=== PATIENT | female | born 1955 | race Caucasian/White ===

== ENCOUNTER 2018-11-08 22:23 | Inpatient (IN) | payer MEDICARE, OTHER ==
[2018-11-08] MEDS ORDERED: ASPIRIN (CHEWABLE) 81 MG TAB PO ONE (22:35)
--- NOTE | 2018-11-08 22:39 | ED.PDOC ---
History of Present Illness - General Chief Complaint: Chest Pain/ME Stated Complaint: chest pain Time Seen by Provider: 11/08/18 22:29 - History of Present Illness Initial Comments: Pt is a 63 y.o. F w/ pmh of htn, dm, and copd who presents to the ER c/o chest pain. Pain has been constant since yesterday, radiates to the left side of her neck and arm. Associated with nausea and decreased p.o. intake. Also reports having a persistent, nonproductive cough today as well as generalized malaise and fatigue. Denies h/o cardiac disease. denies vomiting, diaphoresis, shortness of breath. Allergies/Adverse Reactions: Allergies NO KNOWN ALLERGY Allergy (Verified 11/08/18 23:14) Home Medications: Ambulatory Orders Benztropine Mesylate 1 mg PO DAILY 11/08/18 Bupropion HCl [Bupropion Hydrochloride E] 150 mg PO BID 11/08/18 Cyclobenzaprine HCl [Fexmid] 7.5 mg PO DAILY 11/08/18 Esomeprazole Magnesium 40 mg PO DAILY 11/08/18 Fluticasone Furoate-Vilanterol [Breo Ellipta] 1 inh IN BID 11/08/18 Metformin HCl [Fortamet] 500 mg PO DAILY 11/08/18 Metoprolol Tartrate [Lopressor] 25 mg PO BID 11/08/18 Ondansetron HCl [Zofran] 4 mg PO PRN 11/08/18 Topiramate 25 mg PO BID 11/08/18 Trazodone HCl 100 mg PO BEDTIME 11/08/18 tiZANidine [Zanaflex] 4 mg PO BID 11/08/18 Review of Systems - Review of Systems Constitutional: States: malaise. Denies: diaphoresis EENTM: States: no symptoms reported Respiratory: States: no symptoms reported Cardiology: States: chest pain. Denies: palpitations Gastrointestinal/Abdominal: States: nausea. Denies: vomiting Genitourinary: States: no symptoms reported Musculoskeletal: States: no symptoms reported Skin: States: rash. Denies: lesions Neurological: States: no symptoms reported Endocrine: States: no symptoms reported Hematologic/Lymphatic: States: no symptoms reported All other Systems: Reviewed and Negative Family Medical History - Family History Mother Hx Cardiac Disease: Yes Hx Family Diabetes: Yes Physical Exam - Physical Exam General Appearance: Alert, Comfortable Eyes, Ears, Nose, Throat Exam: normal ENT inspection, pharynx normal Neck: non-tender, supple Respiratory: chest non-tender, lungs clear Cardiovascular/Chest: normal peripheral pulses, regular rate, rhythm Gastrointestinal/Abdominal: non tender, soft Rectal Exam: deferred Extremity: normal range of motion, no pedal edema Neurologic: no motor/sensory deficits, alert, normal mood/affect, oriented x 3 Skin Exam: normal color, warm/dry Progress - Progress Progress: 11/08/18 22:40 MDM Pt w/ h/o copd, dm, htn here with chest pain, cough and generalized malaise. Diff dx: pna, acs. plan for cardiac w/u, treat symptoms, reassess. 11/08/18 23:53 Appears to be RLL infiltrate, per my read. Given productive cough and leukocytosis, will admit for IV antibiotics. Spoke to Filomena Everett who accepts patient for admission. - Results/Orders Results/Orders: 11/08/18 23:25 Potassium Chloride Inj 10 Meq 20 meq Sodium Chloride 0.9% 100Ml [NS (NACL 0.9%) 100ml] 100 ml IVPB ONCE 11/08/18 23:27 Sodium Chloride 0.9% 1000ML [Ns 1000 ml] 1,000 ml IVS ONCE 11/08/18 23:37 cefTRIAXone SODIUM [Rocephin] 1 gm Sodium Chl 0.9% 50Ml Min-Bag+ [NS 50ml MINI-BAG+] 50 ml IVPB ONCE BLOOD CULTURE Stat 11/08/18 23:39 URINALYSIS Stat 11/08/18 23:50 INFLUENZA A & B BY PCR Stat Laboratory Results - last 24 hr 11/08/18 11/08/18 11/08/18 22:34 22:35 22:35 WBC 22.6 H* RBC 4.56 Hgb 13.3 Hct 39.4 MCV 86.4 MCH 29.1 MCHC 33.7 RDW 14.6 H Plt Count 216 MPV 8.5 Absolute Neuts (auto) Not Reportable Absolute Lymphs (auto) Not Reportable Absolute Monos (auto) Not Reportable Absolute Eos (auto) Not Reportable Neutrophils % Not Reportable Neutrophils % (Manual) 87.0 H Lymphocytes % Not Reportable Lymphocytes % (Manual) 9.0 Monocytes % Not Reportable Monocytes % (Manual) 2.0 Eosinophils % Not Reportable Basophils % Not Reportable Band Neutrophils 2.0 Platelet Estimate Normal Normal RBC Morphology Normal rbc morph Sodium 131 L Potassium 2.5 L Chloride 94 L Carbon Dioxide 22 Anion Gap 17.5 BUN 26 H Creatinine 1.23 BUN/Creatinine Ratio 21.1 H Random Glucose 106 H Serum Osmolality 267.8 L Lactic Acid Calcium 8.1 L Magnesium Total Bilirubin 1.3 H AST 14 ALT 18 Alkaline Phosphatase 86 Troponin I 0.02 Serum Total Protein 7.3 Albumin 3.3 Globulin 4.0 H Albumin/Globulin Ratio 0.8 L 11/08/18 11/08/18 23:24 23:26 WBC RBC Hgb Hct MCV MCH MCHC RDW Plt Count MPV Absolute Neuts (auto) Absolute Lymphs (auto) Absolute Monos (auto) Absolute Eos (auto) Neutrophils % Neutrophils % (Manual) Lymphocytes % Lymphocytes % (Manual) Monocytes % Monocytes % (Manual) Eosinophils % Basophils % Band Neutrophils Platelet Estimate Normal RBC Morphology Sodium Potassium Chloride Carbon Dioxide Anion Gap BUN Creatinine BUN/Creatinine Ratio Random Glucose Serum Osmolality Lactic Acid 1.6 Calcium Magnesium 1.4 L Total Bilirubin AST ALT Alkaline Phosphatase Troponin I Serum Total Protein Albumin Globulin Albumin/Globulin Ratio - EKG/XRAY/CT Comments: NSR @ rate of 78, L axis, normal intervals, no STEMI Xray Comments: RLL infiltrate, per my read Departure - Departure Clinical Impression: Community acquired pneumonia Qualifiers: Laterality: right Lung location: lower lobe of lung Qualified Code(s): J18.1 - Lobar pneumonia, unspecified organism Disposition: Admit Patient Condition: Fair Departure Forms: ED Discharge - Pt. Copy, Patient Portal Self Enrollment Instructions: DI for Chest Pain Referrals: Mello Coleman MD [Primary Care Provider] - 1-2 Weeks Home Medications: Ambulatory Orders Benztropine Mesylate 1 mg PO DAILY 11/08/18 Bupropion HCl [Bupropion Hydrochloride E] 150 mg PO BID 11/08/18 Cyclobenzaprine HCl [Fexmid] 7.5 mg PO DAILY 11/08/18 Esomeprazole Magnesium 40 mg PO DAILY 11/08/18 Fluticasone Furoate-Vilanterol [Breo Ellipta] 1 inh IN BID 11/08/18 Metformin HCl [Fortamet] 500 mg PO DAILY 11/08/18 Metoprolol Tartrate [Lopressor] 25 mg PO BID 11/08/18 Ondansetron HCl [Zofran] 4 mg PO PRN 11/08/18 Topiramate 25 mg PO BID 11/08/18 Trazodone HCl 100 mg PO BEDTIME 11/08/18 tiZANidine [Zanaflex] 4 mg PO BID 11/08/18 Decision To Admit - Decistion To Admit Decision to Admit Date: 11/08/18 Decision to Admit Time: 23:51
--- NOTE | 2018-11-08 23:01 | RAD ---
EXAM: XR Chest, 1 View CLINICAL HISTORY: The patient is 63 years old and is Female; pain TECHNIQUE: Frontal view of the chest. COMPARISON: No relevant prior studies available. FINDINGS: LUNGS: Minimal bibasilar opacities are present. PLEURAL SPACE: Unremarkable. No pneumothorax. HEART: The cardiac silhouette is enlarged. MEDIASTINUM: Unremarkable. BONES/JOINTS: There are degenerative changes of the bones. IMPRESSION: Findings suggestive of bibasilar atelectasis. Electronically signed by: Rebecca Faulkner MD 11/08/2018 11:00 PM CDT
[2018-11-08] MEDS ORDERED: IPRATROPIUM/ALBUTEROL 3 ML VIAL NEB ONE ×2 (23:12)
[2018-11-08] MEDS ORDERED: SODIUM CHLORIDE 0.9% IVPB ONE (23:25)
[2018-11-08] MEDS ORDERED: POTASSIUM CHLORIDE IVPB ONE (23:25)
[2018-11-08] MEDS ORDERED: POTASSIUM CHLORIDE 20 MEQ TAB PO ONE (23:25)
[2018-11-08] MEDS ORDERED: SODIUM CHLORIDE 0.9% 1000ML 1,000 ML IVS ONE (23:27)
[2018-11-08] MEDS ORDERED: POTASSIUM CHLORIDE 10mEq 5ML VIAL ONE (23:30)
[2018-11-08] MEDS ORDERED: SODIUM CHLORIDE 0.9% 100ML 100 ML IVPB ONE (23:30)
[2018-11-08] MEDS ORDERED: AZITHROMYCIN 250 MG TAB PO ONE (23:37)
[2018-11-08] MEDS ORDERED: cefTRIAXone SODIUM 1 GM in SODIUM CHL 0.9% 50ML MIN-BAG+ 50 ML IVPB ONE (23:37)
[2018-11-08] MEDS ORDERED: cefTRIAXone SODIUM 1 GM VIAL ONE (23:51)
[2018-11-08] MEDS ORDERED: SODIUM CHL 0.9% 50ML MIN-BAG+ 50 ML IVPB ONE (23:51)
--- NOTE | 2018-11-09 00:17 | HP ---
SUPERVISING PHYSICIAN: Jared Booker M.D. CHIEF COMPLAINT: Chest pain, coughing and upper respiratory complaints. HISTORY OF PRESENT ILLNESS: This is a 63 year-old female patient who presented to the Emergency Room on the evening prior to admission with some chest pain as well as some shortness of breath, coughing and a mild fever. Her coughing has been going on for approximately 2 months. She was actually in the [facility] [facility] once in August and 2 times in September for a cough. Initially in the Emergency Room her temperature was 99.3, heart rate 76, blood pressure was slightly low at 97/65, respiratory rate 22 to 24 and O2 sat was 91%. She has a significant history of chronic obstructive pulmonary disease and quit smoking in 2007. She has also been under quite a bit of stress lately due to her great grandson was recently born with some heart problems and his heart actually stopped beating on the date of her visit to the [facility] He is having surgery in [place]. She said she just did not feel right. She has taken in very little intake and just felt weak and fatigued. Her chest pain was substernal that radiated to the left side. It was worse with movement and it was better when she was lying flat. In the Emergency Room her WBCs were 22,600 with hemoglobin 13.3, hematocrit 39.4. Sodium was 131, potassium 2.5, chloride 94, carbon dioxide 22, anion gap 17.5, BUN 26, creatinine 1.23, glucose 106, serum osmolality 267.8, calcium 8.4, magnesium 1.4. Bilirubin 1.3. Troponin 0.02. Urinalysis was mely in color with a small amount of urine bilirubin, 3 to 5 urine WBCs and 3+ urine bacteria. Blood cultures were sent. The patient was given some fluids in the Emergency Room as well as given some potassium replacement. She was also started on Rocephin. She was given multiple breathing treatments and I was called for hospital admission. PAST MEDICAL HISTORY: 1. Chronic obstructive pulmonary disease. 2. Diabetes mellitus type 2. 3. Coronary artery disease. 4. Hypertension. 5. Gastroesophageal reflux disease. 6. Essential tremors. 7. Fatty liver. She is scheduled with a GI doctor in [place]. 8. Chronic back pain. 9. Anxiety and depression. PAST SURGICAL HISTORY: 1. section times 3. 2. Hysterectomy. 3. Cholecystectomy. 4. 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 OUTPATIENT MEDICATIONS: 1. Nexium. 2. Zofran. 3. Benztropine. 4. Bupropion. 5. Cyclobenzaprine. 6. Fluticasone/Vilanterol. 7. Metformin. 8. Metoprolol. 9. Tizanidine. 10. Topiramate. 11. Trazodone. ALLERGIES: NO KNOWN DRUG ALLERGIES. SOCIAL HISTORY: She has lived in [place] for many years. She is in the process of moving to [place]. There are some issues with her utilities at her home right now and so she is presently living with her granddaughter here in [place]. She has a 30 plus pack year cigarette smoking history and she quit smoking in 2007. She drinks alcoholic beverages on a social basis only. She denies any illicit drug use. She sees Dr. Shantel Morales in [place] as her primary care physician. REVIEW OF SYSTEMS: GENERAL: Positive for fever and malaise. Negative for weight changes. HEENT: Negative for sinus symptom, ear pain, vision changes or sore throat. RESPIRATORY: Positive for shortness of breath and cough. Negative for wheezing. CARDIAC: As per History of Present Illness. She does deny palpitations. GASTROINTESTINAL: Positive for nausea. Negative for vomiting, diarrhea or constipation. GENITOURINARY: Negative for hematuria, dysuria or polyuria. MUSCULOSKELETAL: Positive for chronic back pain. Negative for arthralgias or myalgias. SKIN: Negative for lesions or rashes. NEUROLOGIC: Positive for weakness and essential tremors. Negative for headache or seizures. PSYCHIATRIC: Positive for anxiety and depression. PHYSICAL EXAMINATION: VITAL SIGNS: Temperature 98.2, heart rate 75, blood pressure 115/75, respiratory rate 18, O2 sat 96% on room air. GENERAL: This is a 63 year-old obese female who is lying in her hospital bed. She is in no acute distress. HEENT: Normocephalic and atraumatic. Pupils are equal and reactive. Oropharynx is clear. NECK: Supple without mass. RESPIRATORY: Diminished breath sounds throughout with a few expiratory wheezing in the apices. CHEST: There is equal rise and fall of the chest with inspiration and expiration. CARDIOVASCULAR: Regular rate and rhythm. GASTROINTESTINAL: Abdomen is soft, nondistended, non-tender. Bowel sounds are positive. EXTREMITIES: No clubbing, cyanosis or edema. SKIN: Warm and dry. NEUROLOGIC: She is awake, alert and oriented times three. Cranial nerves II- XII are grossly intact. LABORATORY: Followup labs this morning shows a WBC of 15.7 with hemoglobin 12, hematocrit 35.7. She does have a left shift on her differential. Blood sugars have run between 79 and 118. Sodium 135, potassium 2.6, chloride 100, BUN 24, creatinine 0.95. Lactic acid 1.6, calcium 7.6, magnesium 2.3. Influenza A and B per PCR are both negative. Urine culture is pending. Blood cultures are pending. Chest x-ray in the Emergency Room shows findings suggestive of bibasilar atelectasis. This morning's chest x-ray shows mild bibasilar opacity suggesting atelectasis and pneumonia is not excluded on the left. Findings are not significantly changed. All other labs and films have been reviewed via the EMR. ASSESSMENT: 1. Sepsis related to bilateral pneumonia, left worse than right, most likely community acquired with an admitting respiratory rate of 22 to 24, a low blood pressure of 97/65 and a WBC of 22,600. 2. Dehydration due to poor oral intake, fever and infectious process. 3. Severe electrolyte imbalance, mostly hypokalemia and hypomagnesemia. 4. Urinary tract infection that is contributing to the sepsis. 5. Mild acute renal insufficiency. 6. Diabetes mellitus type 2. 7. Chronic obstructive pulmonary disease with acute exacerbation. 8. Gastroesophageal reflux disease. 9. Chest pain, although her initial troponin was negative and there were no EKG changes. 10. Hypertension on medications. 11. Anxiety and depression. 12. Essential tremors. PLAN: We will admit the patient to the hospital. I have initiated the pneumonia guidelines. Will continue with the Rocephin that was started in the Emergency Room and she will also be started on Zithromax. She will have scheduled and p.r.n. nebs with aggressive pulmonary hygiene, a PPI for ulcer prophylaxis and Lovenox for DVT prophylaxis. I have restarted her home medications. I will gave her some judicious fluids overnight and we will watch her hydration status. I have also given her some Xanax to help with her anxiety. I have started an IV steroid taper. I have initiated 2 sets of serial cardiac enzymes and I have ordered an echocardiogram for Sunday morning. I will continue to monitor her cultures as they become available. Rocephin should cover for the urinary tract infection and I put her on blood sugar checks a.c. and h.s. with sliding scale Humalog insulin. Will continue to monitor closely and follow as needed. #[id number] [facility]
[2018-11-09] MEDS ORDERED: ACETAMINOPHEN 325 MG TAB PO PRN (01:06)
[2018-11-09] MEDS ORDERED: ALBUTEROL SULFATE 2.5 MG/3 ML VIAL NEB PRN (01:06)
[2018-11-09] MEDS ORDERED: MAGNESIUM SULFATE PREMIX 2GM 2 GM in PREMIX BAG 1 BAG IVPB ONE (01:14)
[2018-11-09] MEDS ORDERED: KCL 20 MEQ/NS 1,000 ML IVS ONE (01:14)
[2018-11-09] MEDS ORDERED: GLUCAGON INJ 1 MG VIAL SUBCU PRN (01:16)
[2018-11-09] MEDS ORDERED: DEXTROSE 50% 25 GM/50 ML SYG IV PRN (01:16)
[2018-11-09] MEDS ORDERED: MAGNESIUM SULFATE PREMIX 2GM 50 ML IVPB ONE (01:21)
[2018-11-09] MEDS: IV SET AND CAP CHANGE INJ INJ SCH (02:12)
[2018-11-09] MEDS ORDERED: SODIUM CHLORIDE 0.9% 250ML 250 ML ONE ×2 (05:09→19:04)
[2018-11-09] MEDS ORDERED: AZITHROMYCIN IV 500 MG VIAL IVPB ONE ×2 (05:09→19:05)
[2018-11-09] MEDS: AZITHROMYCIN IV 500 MG in SODIUM CHLORIDE 0.9% 250ML 250 ML IVPB SCH (05:43)
[2018-11-09] MEDS: PANTOPRAZOLE SODIUM IV 40 MG VIAL IV SCH (07:08)
--- NOTE | 2018-11-09 07:40 | RAD ---
EXAM: XR Chest, 2 Views CLINICAL HISTORY: The patient is 63 years old and is Female; Pneumonia TECHNIQUE: Frontal and lateral views of the chest. COMPARISON: Chest radiograph from 11/08/2018; CT abdomen pelvis from 11/01/2018 FINDINGS: LUNGS: Mild outward bulging of the right lower lung parenchyma again demonstrated, likely related to prior postsurgical change. There are mild bibasilar opacities, suggesting atelectasis. Pneumonia not excluded on the left. These are similar to the prior study. PLEURAL SPACE: No significant pleural effusion appreciated. No obvious pneumothorax. HEART: Stable mild enlargement of the cardiac silhouette. MEDIASTINUM: Unremarkable. BONES/JOINTS: Degenerative changes of the spine. No acute fracture. IMPRESSION: Mild bibasilar opacities suggesting atelectasis. Pneumonia not excluded on the left. Findings are not significantly changed. Electronically signed by: Jackelin Douglas MD 11/09/2018 7:39 AM CDT
[2018-11-09] MEDS: INSULIN LISPRO 100 UNITS/ML PEN SUBCU SCH ×4 (08:02→21:35)
[2018-11-09] MEDS ORDERED: SODIUM CHL 0.9% 50ML MIN-BAG+ 50 ML IVPB ONE (08:26)
[2018-11-09] MEDS ORDERED: cefTRIAXone SODIUM 1 GM VIAL ONE (08:27)
[2018-11-09] MEDS: IPRATROPIUM/ALBUTEROL 3 ML VIAL NEB SCH ×4 (08:46→19:55)
[2018-11-09] MEDS: NON-FORMULARY MEDICATION 1 EA MIS (Fluticasone Furoate-Vilanterol [Breo Ellipta 100-25 Mcg IN SCH (08:55)
[2018-11-09] MEDS ORDERED: NON-FORMULARY MEDICATION 1 EA MIS (Fluticasone Furoate-Vilanterol [Breo Ellipta 100-25 Mcg IN SCH (09:00)
[2018-11-09] MEDS ORDERED: CYCLOBENZAPRINE HCL 5 MG TAB PO SCH (09:00)
[2018-11-09] MEDS: tiZANidine 4 MG TAB PO SCH ×2 (09:19→20:39)
[2018-11-09] MEDS: METOPROLOL TARTRATE 25 MG TAB PO SCH ×2 (09:19→16:43)
[2018-11-09] MEDS: NYSTATIN POWDER 15GM BTTL TOP SCH ×4 (09:20→20:40)
[2018-11-09] MEDS: cefTRIAXone SODIUM 1 GM in SODIUM CHL 0.9% 50ML MIN-BAG+ 50 ML IVPB SCH (09:20)
[2018-11-09] MEDS: BENZTROPINE MESYLATE TAB 1 MG TAB PO SCH (09:20)
[2018-11-09] MEDS: metFORMIN HCL 500 MG TAB PO SCH (09:20)
[2018-11-09] MEDS: TOPIRAMATE 25 MG TAB PO SCH ×2 (09:20→20:39)
[2018-11-09] MEDS: POTASSIUM CHLORIDE 20 MEQ TAB PO SCH ×2 (09:20→13:37)
[2018-11-09] MEDS: SODIUM CHLORIDE 0.9% (FLUSH) 10 ML SYG IV SCH ×2 (09:21→20:40)
[2018-11-09] MEDS ORDERED: methylPREDNISolone SODIUM SUC 125 MG/2 ML VIAL IV ONE (12:16)
[2018-11-09] MEDS: guaiFENesin ER TAB 600 MG TAB PO SCH ×2 (13:37→20:39)
[2018-11-09] MEDS ORDERED: methylPREDNISolone SODIUM SUC 125 MG/2 ML VIAL ONE (19:04)
[2018-11-09] MEDS: traZODone HCL 100 MG TAB PO SCH (20:39)
[2018-11-09] MEDS: ALPRAZolam 0.25 MG TAB PO PRN (20:39)
[2018-11-09] MEDS: ENOXAPARIN SODIUM 40 MG/0.4 ML SYG SUBCU SCH (20:39)
[2018-11-09] MEDS: methylPREDNISolone SODIUM SUC 125 MG/2 ML VIAL IV SCH (21:36)
[2018-11-10] MEDS: methylPREDNISolone SODIUM SUC 125 MG/2 ML VIAL IV SCH (05:30)
[2018-11-10] MEDS: AZITHROMYCIN IV 500 MG in SODIUM CHLORIDE 0.9% 250ML 250 ML IVPB SCH (05:31)
[2018-11-10] MEDS: PANTOPRAZOLE SODIUM IV 40 MG VIAL IV SCH (05:59)
[2018-11-10] MEDS: INSULIN LISPRO 100 UNITS/ML PEN SUBCU SCH ×4 (07:19→22:34)
[2018-11-10] MEDS: NON-FORMULARY MEDICATION 1 EA MIS (Fluticasone Furoate-Vilanterol [Breo Ellipta 100-25 Mcg IN SCH ×3 (07:46→20:45)
[2018-11-10] MEDS: IPRATROPIUM/ALBUTEROL 3 ML VIAL NEB SCH ×4 (07:46→20:23)
[2018-11-10] MEDS: metFORMIN HCL 500 MG TAB PO SCH (08:27)
[2018-11-10] MEDS: METOPROLOL TARTRATE 25 MG TAB PO SCH ×2 (08:27→16:32)
[2018-11-10] MEDS ORDERED: SODIUM CHL 0.9% 50ML MIN-BAG+ 50 ML IVPB ONE (09:17)
[2018-11-10] MEDS ORDERED: cefTRIAXone SODIUM 1 GM VIAL ONE (09:18)
[2018-11-10] MEDS: tiZANidine 4 MG TAB PO SCH ×2 (10:07→20:28)
[2018-11-10] MEDS: guaiFENesin ER TAB 600 MG TAB PO SCH ×2 (10:07→20:28)
[2018-11-10] MEDS: BENZTROPINE MESYLATE TAB 1 MG TAB PO SCH (10:07)
[2018-11-10] MEDS: TOPIRAMATE 25 MG TAB PO SCH ×2 (10:07→20:28)
[2018-11-10] MEDS: cefTRIAXone SODIUM 1 GM in SODIUM CHL 0.9% 50ML MIN-BAG+ 50 ML IVPB SCH (10:08)
[2018-11-10] MEDS: SODIUM CHLORIDE 0.9% (FLUSH) 10 ML SYG IV SCH ×2 (10:08→20:29)
[2018-11-10] MEDS: NYSTATIN POWDER 15GM BTTL TOP SCH ×4 (10:08→20:31)
[2018-11-10] MEDS: methylPREDNISolone SODIUM SUC 40 MG/ML VIAL IV SCH ×2 (13:44→22:33)
--- NOTE | 2018-11-10 16:45 | PN ---
DATE: 11/10/18 SUPERVISING PHYSICIAN: Jared Bokoer M.D. SUBJECTIVE: The patient is sitting on the side of her bed. Today, she feels much better. There was very little shortness of breath, only with exertion. Denies chest pain, nausea, vomiting, constipation or diarrhea. OBJECTIVE: VITAL SIGNS: Temperature 98.1, heart rate 67, blood pressure 135/73, respiratory rate 18, O2 sat 97% on room air. RESPIRATORY: Somewhat diminished at the bases with some scattered rhonchi throughout, but improved since yesterday. She occasionally gets tachypneic with exertion. CARDIAC: Regular rate and rhythm. GASTROINTESTINAL: Abdomen is soft, nondistended, non-tender. Bowel sounds are positive. NEUROLOGIC: She is awake, alert and oriented times three. LABORATORY: WBCs have normalized to 9.1 with hemoglobin 11., hematocrit 36. She still has a left shift on her differential. Blood sugars have run between 184 and 287. The remaining electrolytes are within normal limits with the exception of her calcium is slightly low at 8.3. Blood cultures, urine cultures and sputum culture are pending. All other labs and films have been reviewed via the EMR. ASSESSMENT: 1. Sepsis related to bilateral pneumonia, left worse than right, most likely community acquired with an admitting respiratory rate of 22 to 24, a low blood pressure of 97/65 and a WBC of 22,600. 2. Dehydration due to poor oral intake, fever and infectious process. 3. Severe electrolyte imbalance, mostly hypokalemia and hypomagnesemia. 4. Urinary tract infection that is contributing to the sepsis. 5. Mild acute renal insufficiency. 6. Diabetes mellitus type 2. 7. Chronic obstructive pulmonary disease with acute exacerbation. 8. Gastroesophageal reflux disease. 9. Chest pain, although her initial troponin was negative and there were no EKG changes. 10. Hypertension on medications. 11. Anxiety and depression. 12. Essential tremors. PLAN: We will continue present supportive care. Her IV steroids have been tapered down. She will begin her oral steroids tomorrow. An echocardiogram has been ordered for tomorrow morning. I will do routine lab and a chest x-ray in the morning. Will continue with her Rocephin and Zithromax and monitor her cultures as they become available. I have ordered Physical Therapy to evaluate safety for discharge as well as ambulate with assistance 4 times daily. Her blood sugars have been running somewhat high and she is only on Metformin routinely. Most likely her blood sugars are high due to her steroids, so will have to watch that in case we need to increase her sliding scale insulin. Otherwise will continue to monitor closely and follow as needed. [facility][id number] [facility]
[2018-11-10] MEDS ORDERED: SODIUM CHLORIDE 0.9% 250ML 250 ML ONE (20:01)
[2018-11-10] MEDS ORDERED: AZITHROMYCIN IV 500 MG VIAL IVPB ONE (20:02)
[2018-11-10] MEDS: traZODone HCL 100 MG TAB PO SCH (20:28)
[2018-11-10] MEDS: ENOXAPARIN SODIUM 40 MG/0.4 ML SYG SUBCU SCH (20:29)
[2018-11-10] MEDS: SODIUM CHLORIDE 0.9% (FLUSH) 10 ML SYG IV PRN (22:33)
[2018-11-11] MEDS: methylPREDNISolone SODIUM SUC 40 MG/ML VIAL IV SCH (05:31)
[2018-11-11] MEDS: SODIUM CHLORIDE 0.9% (FLUSH) 10 ML SYG IV PRN ×2 (05:32→06:09)
[2018-11-11] MEDS: AZITHROMYCIN IV 500 MG in SODIUM CHLORIDE 0.9% 250ML 250 ML IVPB SCH (05:32)
[2018-11-11] MEDS: PANTOPRAZOLE SODIUM IV 40 MG VIAL IV SCH (06:10)
--- NOTE | 2018-11-11 07:17 | RAD ---
EXAM: XR Chest, 2 Views CLINICAL HISTORY: pna TECHNIQUE: Frontal and lateral views of the chest. COMPARISON: 11/09/2018. FINDINGS: Limitations: None. Lungs: Persistent but improved airspace consolidation in the left lung base. Stable scarring right lung base. Pleural space: Unremarkable. No pneumothorax. Heart: Unremarkable. No cardiomegaly. Mediastinum: Unremarkable. Bones/joints: Unremarkable. IMPRESSION: Persistent but improved left basilar pneumonia. Electronically signed by: Chaparrita White MD 11/11/2018 7:15 AM CDT
[2018-11-11] MEDS ORDERED: SODIUM CHL 0.9% 50ML MIN-BAG+ 50 ML IVPB ONE (07:37)
[2018-11-11] MEDS ORDERED: cefTRIAXone SODIUM 1 GM VIAL ONE (07:38)
[2018-11-11] MEDS: metFORMIN HCL 500 MG TAB PO SCH (07:46)
[2018-11-11] MEDS: INSULIN LISPRO 100 UNITS/ML PEN SUBCU SCH ×4 (07:46→21:37)
[2018-11-11] MEDS: METOPROLOL TARTRATE 25 MG TAB PO SCH ×2 (07:46→17:26)
[2018-11-11] MEDS: guaiFENesin ER TAB 600 MG TAB PO SCH ×2 (08:52→21:36)
[2018-11-11] MEDS: TOPIRAMATE 25 MG TAB PO SCH ×2 (08:52→21:36)
[2018-11-11] MEDS: tiZANidine 4 MG TAB PO SCH ×2 (08:52→21:36)
[2018-11-11] MEDS: cefTRIAXone SODIUM 1 GM in SODIUM CHL 0.9% 50ML MIN-BAG+ 50 ML IVPB SCH (08:52)
[2018-11-11] MEDS: BENZTROPINE MESYLATE TAB 1 MG TAB PO SCH (08:53)
[2018-11-11] MEDS: SODIUM CHLORIDE 0.9% (FLUSH) 10 ML SYG IV SCH ×2 (08:53→21:37)
[2018-11-11] MEDS: NYSTATIN POWDER 15GM BTTL TOP SCH ×4 (08:53→21:38)
[2018-11-11] MEDS: IPRATROPIUM/ALBUTEROL 3 ML VIAL NEB SCH ×4 (08:55→20:18)
[2018-11-11] MEDS: predniSONE 20 MG TAB PO SCH (08:57)
[2018-11-11] MEDS: NON-FORMULARY MEDICATION 1 EA MIS (Fluticasone Furoate-Vilanterol [Breo Ellipta 100-25 Mcg IN SCH ×2 (09:15→21:19)
[2018-11-11] MEDS: ALPRAZolam 0.25 MG TAB PO PRN (10:28)
[2018-11-11] MEDS ORDERED: PANTOPRAZOLE SODIUM TAB 40 MG PO ONE (19:34)
[2018-11-11] MEDS ORDERED: SODIUM CHLORIDE 0.9% 250ML 250 ML ONE (19:34)
[2018-11-11] MEDS ORDERED: AZITHROMYCIN IV 500 MG VIAL IVPB ONE (19:35)
--- NOTE | 2018-11-11 20:00 | PN ---
DATE: 11/11/18 SUPERVISING PHYSICIAN: Jerman Gagnon M.D. SUBJECTIVE: The patient notes that she feels a little bit better today but she is still having some shortness of breath and a significant amount of coughing. She has been afebrile. She has had no nausea or vomiting. OBJECTIVE: VITAL SIGNS: Temperature 98.6, pulse 66, blood pressure 176/96, respirations 16, satting 94% on room air. Weight 79.4 kg. GENERAL: The patient is resting comfortably. Appears to be in no acute distress. CHEST: Lung sounds were diminished towards the bases with continued scattered rhonchi throughout both lung alexander. HEART: Regular rate and rhythm. ABDOMEN: Soft, non-tender. Positive bowel sounds. EXTREMITIES: Without any edema. NEUROLOGIC: She is alert and oriented times three. LABORATORY: White count 11,900, hemoglobin 11.7, hematocrit 35.4, platelet count 222,000. Differential shows a continued left shift. Chemistries show normal electrolytes with BUN 18, creatinine 0.68. Blood sugars are elevated between 222 and 294. Magnesium normal at 1.8, calcium 8.6. MICROBIOLOGY: Sputum culture is pending. Urine culture is pending. RADIOLOGY: Chest x-ray today per radiology interpretation shows persistent but improved left basilar pneumonia. ASSESSMENT: 1. Sepsis related to bilateral pneumonia, left worse than right, most likely community acquired with an admitting respiratory rate of 22 to 24, a low blood pressure of 97/65 and a WBC of 22,600 with the patient showing continued good response with treatment. 2. Dehydration, resolved with fluids. 3. Severe electrolyte imbalance with hypokalemia and hypomagnesemia, resolved with fluids. 4. Urinary tract infection with culture pending. 5. Acute renal insufficiency, likely prerenal azotemia with levels back to baseline after fluid. 6. Diabetes mellitus type 2 with elevated blood sugars, but stable. 7. Chronic obstructive pulmonary disease with acute exacerbation secondary to #1. 8. Gastroesophageal reflux disease, chronic. 9. Chest pain with negative workup. 10. Hypertension on medications but continuing to be elevated. 11. Anxiety and depression. 12. Essential tremors. PLAN: Will continue with plan of care at this point. She is on oral steroids. Will continue with Rocephin and azithromycin. Will await a urine culture to target antibiotic therapy as according to those results. She has been working with Physical Therapy. Will follow her blood pressure as it continues to be elevated. At this point the patient is on Lopressor. May need to consider adding additional medication to better control blood pressure. Will anticipate hopefully discharging tomorrow. Until then will continue to monitor and treat as needed. #[id number] [facility]
[2018-11-11] MEDS: traZODone HCL 100 MG TAB PO SCH (21:36)
[2018-11-11] MEDS: ENOXAPARIN SODIUM 40 MG/0.4 ML SYG SUBCU SCH (21:36)
[2018-11-12 02:06] VITALS: TEMP 98
[2018-11-12] MEDS: IV SET AND CAP CHANGE INJ INJ SCH (03:48)
[2018-11-12] MEDS: AZITHROMYCIN IV 500 MG in SODIUM CHLORIDE 0.9% 250ML 250 ML IVPB SCH (05:38)
[2018-11-12] MEDS: SODIUM CHLORIDE 0.9% (FLUSH) 10 ML SYG IV PRN (05:40)
[2018-11-12] MEDS ORDERED: PANTOPRAZOLE SODIUM TAB 40 MG PO SCH (06:30)
[2018-11-12] MEDS: METOPROLOL TARTRATE 25 MG TAB PO SCH (08:02)
[2018-11-12] MEDS: metFORMIN HCL 500 MG TAB PO SCH (08:02)
[2018-11-12] MEDS: INSULIN LISPRO 100 UNITS/ML PEN SUBCU SCH (08:04)
[2018-11-12] MEDS: IPRATROPIUM/ALBUTEROL 3 ML VIAL NEB SCH (08:56)
[2018-11-12] MEDS: NON-FORMULARY MEDICATION 1 EA MIS (Fluticasone Furoate-Vilanterol [Breo Ellipta 100-25 Mcg IN SCH (08:56)
[2018-11-12] MEDS ORDERED: CEFDINIR 300 MG CAP PO ONE (09:32)
[2018-11-12] MEDS: NYSTATIN POWDER 15GM BTTL TOP SCH (09:53)
[2018-11-12] MEDS: BENZTROPINE MESYLATE TAB 1 MG TAB PO SCH (09:53)
[2018-11-12] MEDS: guaiFENesin ER TAB 600 MG TAB PO SCH (09:53)
[2018-11-12] MEDS: tiZANidine 4 MG TAB PO SCH (09:53)
[2018-11-12] MEDS: predniSONE 20 MG TAB PO SCH (09:53)
[2018-11-12] MEDS: TOPIRAMATE 25 MG TAB PO SCH (09:53)
[2018-11-12] MEDS: SODIUM CHLORIDE 0.9% (FLUSH) 10 ML SYG IV SCH (09:54)
[2018-11-12 10:29] VITALS: BP 150/72
[2018-11-12 11:04] VITALS: O2SAT 94
--- NOTE | 2018-11-27 13:21 | DS ---
SUPERVISING PHYSICIAN: Jerman Gagnon MD ADMISSION DIAGNOSIS: 1. Sepsis related to bilateral pneumonia, left worse than right, most likely community acquired with an admitting respiratory rate of 22 to 24, a low blood pressure of 97/65 and a WBC of 22,600. 2. Dehydration due to poor oral intake, fever and infectious process. 3. Severe electrolyte imbalance, mostly hypokalemia and hypomagnesemia. 4. Urinary tract infection that is contributing to the sepsis. 5. Mild acute renal insufficiency. 6. Diabetes mellitus, type 2. 7. Chronic obstructive pulmonary disease with acute exacerbation. 8. Gastroesophageal reflux disease. 9. Chest pain, although her initial troponin was negative and there were no EKG changes. 10. Hypertension on medications. 11. Anxiety and depression. 12. Essential tremors. DISCHARGE DIAGNOSIS: 1. Sepsis related to bilateral pneumonia, left worse than right, most likely community acquired with an admitting respiratory rate of 22 to 24, a low blood pressure of 97/65 and a WBC of 22,600 with the patient showing continued good response with treatment. Final sputum culture showed methicillin sensitive Staphylococcus aureus. 2. Dehydration, resolved with fluids. 3. Severe electrolyte imbalance with hypokalemia and hypomagnesemia, resolved with fluids. 4. Urinary tract infection with culture showing normal urogenital tano. 5. Acute renal insufficiency, likely prerenal azotemia with levels back to baseline after fluid. 6. Diabetes mellitus, type 2, with elevated blood sugars, but stable. 7. Chronic obstructive pulmonary disease with acute exacerbation secondary to #1. 8. Gastroesophageal reflux disease, chronic. 9. Chest pain with negative workup. 10. Hypertension on medications but continuing to be elevated. 11. Anxiety and depression. 12. Essential tremors. REASON FOR HOSPITALIZATION: This is a 63 year-old female patient who presented to the Emergency Room on the evening prior to admission with some chest pain as well as some shortness of breath, coughing and a mild fever. Her coughing has been going on for approximately 2 months. She was actually in the [facility]. once in August and 2 times in September for a cough. Initially in the Emergency Room her temperature was 99.3, heart rate 76, blood pressure was slightly low at 97/65, respiratory rate 22 to 24 and O2 sat was 91%. She has a significant history of chronic obstructive pulmonary disease and quit smoking in 2007. She has also been under quite a bit of stress lately due to her great grandson was recently born with some heart problems and his heart actually stopped beating on the date of her visit to the . . He is having surgery in [place]. She said she just did not feel right. She has taken in very little intake and just felt weak and fatigued. Her chest pain was substernal that radiated to the left side. It was worse with movement and it was better when she was lying flat. In the Emergency Room her WBCs were 22,600 with hemoglobin 13.3, hematocrit 39.4. Sodium was 131, potassium 2.5, chloride 94, carbon dioxide 22, anion gap 17.5, BUN 26, creatinine 1.23, glucose 106, serum osmolality 267.8, calcium 8.4, magnesium 1.4. Bilirubin 1.3. Troponin 0.02. Urinalysis was mely in color with a small amount of urine bilirubin, 3 to 5 urine WBCs and 3+ urine bacteria. Blood cultures were sent. The patient was given some fluids in the Emergency Room as well as given some potassium replacement. She was also started on Rocephin. She was given multiple breathing treatments and I was called for hospital admission. LABORATORY: White count on admission on was 22,600 and at discharge was 11,900. It had returned to baseline levels of 9,100, but she was started on some steroids resulting in slight increase. Hemoglobin and hematocrit were stable at 11.7 and 35.4, respectively. Platelet count 222,000. Differential did show a left shift. Chemistries initially on admission showed sodium 133, potassium 2.5, BUN 1.23, total bilirubin Sectral elevated at 1.3, magnesium low at 1.4. Prior to discharge, sodium had normalized to 135, potassium back to baseline level at 3.6, creatinine remained stable and was 0.6 on discharge. Magnesium normalized to 2.3 and lactic acid initially on admission was 1.4. Blood sugars ranged between 85 and 287. RADIOLOGY: Initial chest x-ray on admission per radiologic interpretation showed findings consistent with bibasilar atelectasis. Final chest x-ray on 11/11/18, the day before discharge, per radiologic interpretation showed persistent but improved left basilar pneumonia. She had an echocardiogram done and per interpretation by Dr. Lindsay showed an ejection fraction of 55% to 60%. EKG showed normal sinus rhythm with no acute ST or T-wave changes. HOSPITAL COURSE: Ms. Metz was admitted for treatment of pneumonia as noted above. She was started on antibiotic coverage with azithromycin and Rocephin. She was on aggressive bronchial hygiene. She did show good response to treatment although she did require some Solu-Medrol which was continued. She responded well and on the day of discharge, it was felt she had clinically improved and was stable enough to be discharged home to continue with outpatient management. PHYSICAL EXAMINATION AT DISCHARGE: VITAL SIGNS: Temperature 98. Pulse 60. Blood pressure 150/72. Respirations 16. Saturation 94% on room air. GENERAL: The patient was resting comfortably and appeared to be in no acute distress. CHEST: Lung sounds clear, just diminished towards the bases. HEART: Regular rate and rhythm. ABDOMEN: Soft, nontender. Positive bowel sounds. EXTREMITIES: No edema. NEUROLOGIC: Alert and oriented times 3. PLAN: Ms. Metz was discharged on 11/12/18 with instructions to followup with Dr. Morales in [place] on 11/15/18 at 15:30. She was to resume all her medications as instructed. She was told to take Levemir as directed and check her blood sugar at night and if greater than 200, to take an additional 10 units of Levemir while on steroids. Once steroids complete, she is to resume her normal dosing of Levemir. She was told to return to the hospital should she have any concerning symptoms. Diet on discharge was diabetic diet. Activity as tolerated. MEDICATIONS PRESCRIBED ON DISCHARGE: 1. Albuterol inhaler 1 to 2 puffs every 4 hours as needed, #1 inhaler, no refills. 2. Cefdinir 300 mg twice daily for 7 days, no refills. 3. Guaifenesin 600 mg twice daily while on antibiotics, no refills. All other medications prior to hospitalization were continued includin. Fexmid. 2. Benztropine mesylate. 3. Esomeprazole. 4. Bupropion. 5. Metoprolol. 6. Metformin. 7. Topiramate. 8. Zofran. 9. Zanaflex. 10. Trazodone. 11. Brio Ellipta 100-25. CONDITION ON DISCHARGE: Stable and improved. DISPOSITION: The patient was discharged home. #[id number] [facility]
== END 2018-11-12 11:20 | disposition home or self-care (01) | DRG 871 ==
LOC: ER 22:23 → OBSVTOIN 11-09 00:16 → MS 11-09 00:16
PROVIDERS: ADMIT Nurse Practitioner Acute Care; ATTEND Nurse Practitioner Family
DX: A41.9 Sepsis, unspecified organism (principal); J18.1 Lobar pneumonia, unspecified organism; J44.0 Chronic obstructive pulmonary disease with (acute) lower respiratory infection; N39.0 Urinary tract infection, site not specified; J44.1 Chronic obstructive pulmonary disease with (acute) exacerbation; E11.65 Type 2 diabetes mellitus with hyperglycemia; I25.10 Atherosclerotic heart disease of native coronary artery without angina pectoris; I10 Essential (primary) hypertension; K21.9 Gastro-esophageal reflux disease without esophagitis; K76.0 Fatty (change of) liver, not elsewhere classified; G89.29 Other chronic pain; M54.9 Dorsalgia, unspecified; F41.9 Anxiety disorder, unspecified; F32.9 Major depressive disorder, single episode, unspecified; G25.0 Essential tremor; E86.0 Dehydration; E87.6 Hypokalemia; E83.42 Hypomagnesemia; N28.9 Disorder of kidney and ureter, unspecified; E66.9 Obesity, unspecified; Z87.891 Personal history of nicotine dependence; Z79.84 Long term (current) use of oral hypoglycemic drugs; Z79.899 Other long term (current) drug therapy; Z68.33 Body mass index [BMI] 33.0-33.9, adult

== ENCOUNTER 2019-07-05 09:13 | Emergency (ER) | payer OTHER ==
[2019-07-05] MEDS ORDERED: SODIUM CHLORIDE 0.9% (FLUSH) 10 ML SYG IV PRN (09:16)
--- NOTE | 2019-07-05 09:16 | ED.PDOC ---
History of Present Illness - General Time Seen by Provider: 07/05/19 09:14 Source: patient - History of Present Illness Initial Comments: 63 yo female with PMH of HTN, DM2, COPD who presents with cc of Right-sided chest wall pain. Onset yesterday, worsened around 11 pm last night, since then reports as a constant, sharp, 10/10 severity pain to right lower chest wall under the breast, no radiation, worse with deep breathing/coughing and with use of right arm, slightly worse with activity, little improvement at rest, tried Flexeril & gabapentin at home with little relief. 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 Reports also intermittent non-productive cough. Denies dyspnea, fevers, chills, abd pain, n/v/d, leg swelling. Denies any recent falls or injuries. PCP is Dr. Gibbons. Pt hospitalized here 11/2018 for BL pneumonia and sepsis at that time. Allergies/Adverse Reactions: Allergies NO KNOWN ALLERGY Allergy (Verified 07/05/19 09:43) Home Medications: Ambulatory Orders Bupropion HCl [Bupropion Hydrochloride E] 150 mg PO BID 11/08/18 Esomeprazole Magnesium 40 mg PO DAILY 11/08/18 Fluticasone Furoate-Vilanterol [Breo Ellipta 100-25 Mcg/INH] 1 inh IN BID 11/08/18 Metformin HCl [Fortamet] 500 mg PO BID 11/08/18 Topiramate 25 mg PO BID 11/08/18 Acetaminophen W/ Codeine [Tylenol W/ CODEINE #3] 1 ea PO Q6H PRN 7 Days #10 07/05/19 Alendronate Sodium 70 mg PO WKLY 07/05/19 Azithromycin Tab [Zithromax Tab] 250 mg PO DAILY 4 Days #4 tab 07/05/19 Celecoxib 200 mg PO DAILY 07/05/19 Cyclobenzaprine HCl [Flexeril] 10 mg PO DAILY 07/05/19 Enalapril Maleate & Hydrochlor [Enalapril Maleate/Hydroch 10-25 mg] 1 tab PO DAILY 07/05/19 Gabapentin 100 mg PO TID 07/05/19 Insulin Glargine [Toujeo Max Solostar] 80 unit SC DAILY 07/05/19 Insulin Lispro [Insulin Lispro Kwikpen] 100 unit SC TID 07/05/19 Montelukast [Singulair] 10 mg PO DAILY 07/05/19 Potassium Chloride [Potassium Chloride ER] 10 meq PO DAILY 07/05/19 Review of Systems - Review of Systems Review of Systems: 07/05/19 09:29 as per HPI All other Systems: Reviewed and Negative Past Medical History (General) - Patient Medical History Hx Seizures: No Hx Stroke: No Hx Asthma: Yes Hx of COPD: Yes Hx Congestive Heart Failure: No Hx Pacemaker: No Hx Hypertension: Yes Hx Diabetes: Yes Hx Cancer: Yes - skin Hx MRSA: No - Vaccination History Hx Tetanus, Diphtheria Vaccination: No Hx Influenza Vaccination: No Hx Pneumococcal Vaccination: No - Social History Hx Tobacco Use: No Hx Alcohol Use: No Hx Substance Use: No Hx Physical Abuse: No Hx Emotional Abuse: No Family Medical History - Family History Mother Hx Cardiac Disease: Yes Hx Family Diabetes: Yes Physical Exam - Physical Exam General Appearance: Alert, Comfortable, No apparent distress Eye Exam: bilateral normal Ears, Nose, Throat: hearing grossly normal, normal ENT inspection, normal pharynx Neck: non-tender, full range of motion, supple, normal inspection Respiratory: chest non-tender, lungs clear, normal breath sounds, no respiratory distress, no accessory muscle use Cardiovascular/Chest: normal peripheral pulses, regular rate, rhythm, no edema, no gallop, no JVD, no murmur, other - approx 4 cm horizontal well-healed surgical scar noted to right lower chest wall, no chest wall deformities noted, no bruising/discoloration, no TTP on exam Peripheral Pulses: radial,right: 2+, radial,left: 2+ Gastrointestinal/Abdominal: non tender, soft, no organomegaly Back Exam: normal inspection, no CVA tenderness, no vertebral tenderness Extremity: normal range of motion, non-tender, normal inspection, no pedal edema, no calf tenderness Neurologic: physician representative II-XII nml as tested, no motor/sensory deficits, alert, normal mood/affect, oriented x 3 Skin Exam: normal color, warm/dry Progress - Progress Progress: 07/05/19 09:31 Right chest wall pain -suspect MSK in nature vs pleurisy. Consider also ACS, PNA, anxiety, neuropathy, scar tissue, rib fracture, other -obtain 2vCXR, cardiac work-up, labs -place PIV, pain control 07/05/19 11:00 -Labs reassuring - trop <0.017, WBC wnl, K 3.1 (replaced orally), glucose 214. Remainder of labs pretty unremarkable. -Pt reassessed - remains stable but states little improvement in pain with Toradol. Will give [place] 10 PO and reassess. Repeat EKG & trop in ED. 07/05/19 11:42 -Repeat EKG & Trop unchanged. Pt feeling much better after the [place], remains stable. Discussed dx of pleuritic chest pain. Advised OTC analgesics. Will give Tylenol #3 PRN Rx for breakthrough pain. Will also cover with Z-pack x5 days as cannot completely exclude RLL PNA although this is doubtful, first dose given here. -dc to home in good condition, return warnings discussed Prasanth Evans MD Billing #[id number] 07/05/19 09:16 Sodium Chloride 0.9% (Flush) [Saline Flush Syringe] 10 ml IV PRN PRN 07/05/19 09:30 EKG STAT 07/05/19 11:00 EKG Assessment ONCE EKG STAT 07/05/19 11:41 Azithromycin Tab [Zithromax Tab] 500 mg PO ONCE ONE 07/06/19 09:00 Pulse Ox Daily Laboratory Results - last 24 hr 07/05/19 07/05/19 07/05/19 09:32 09:32 09:32 WBC 9.2 RBC 4.56 Hgb 12.6 Hct 38.1 MCV 83.5 MCH 27.7 MCHC 33.2 RDW 15.9 H Plt Count 212 MPV 8.7 Absolute Neuts (auto) 6.30 Absolute Lymphs (auto) 2.00 Absolute Monos (auto) 0.70 Absolute Eos (auto) 0.10 Absolute Basos (auto) 0.10 Neutrophils % 69.0 Lymphocytes % 21.7 Monocytes % 7.2 Eosinophils % 1.4 Basophils % 0.7 Sodium 134 L Potassium 3.2 L Chloride 99 L Carbon Dioxide 25 Anion Gap 13.2 BUN 20 H Creatinine 0.83 BUN/Creatinine Ratio 24.1 H Random Glucose 214 H Serum Osmolality 277.3 Calcium 8.8 Total Bilirubin 0.6 AST 19 ALT 18 Alkaline Phosphatase 98 Troponin I < 0.02 B-Natriuretic Peptide 8.5 Serum Total Protein 7.2 Albumin 3.5 Globulin 3.7 H Albumin/Globulin Ratio 0.9 L 07/05/19 11:00 WBC RBC Hgb Hct MCV MCH MCHC RDW Plt Count MPV Absolute Neuts (auto) Absolute Lymphs (auto) Absolute Monos (auto) Absolute Eos (auto) Absolute Basos (auto) Neutrophils % Lymphocytes % Monocytes % Eosinophils % Basophils % Sodium Potassium Chloride Carbon Dioxide Anion Gap BUN Creatinine BUN/Creatinine Ratio Random Glucose Serum Osmolality Calcium Total Bilirubin AST ALT Alkaline Phosphatase Troponin I < 0.02 B-Natriuretic Peptide Serum Total Protein Albumin Globulin Albumin/Globulin Ratio - EKG/XRAY/CT EKG: Sinus - NSR, HR 90, no ST elevs or pathologic q waves noted, axis & intervals normal, appears unchanged compared to 11/09/18 EKG XRAY: chest - scarring noted in Right lower lung field from prior surgery, appears unchanged from prior CXR's, cannot rule out surrounding infectious process/infiltrate but seems unlikely, otherwise no acute abnormalities appreciated per my read Departure - Departure Clinical Impression: Pleuritic chest pain Time of Disposition: 11:44 Disposition: Discharge to Home or Self Care Condition: Good Instructions: Pleuritic Chest Pain (DC) Diet: resume usual diet Activity: increase activity as tolerated Referrals: Bjorn Gibbons MD [Primary Care Provider] - 1-2 Weeks Prescriptions: Acetaminophen W/ Codeine [Tylenol W/ CODEINE #3] 1 ea PO Q6H PRN 7 Days #10 PRN Reason: Pain Azithromycin Tab [Zithromax Tab] 250 mg PO DAILY 4 Days #4 tab Home Medications: Ambulatory Orders Bupropion HCl [Bupropion Hydrochloride E] 150 mg PO BID 11/08/18 Esomeprazole Magnesium 40 mg PO DAILY 11/08/18 Fluticasone Furoate-Vilanterol [Breo Ellipta 100-25 Mcg/INH] 1 inh IN BID 11/08/18 Metformin HCl [Fortamet] 500 mg PO BID 11/08/18 Topiramate 25 mg PO BID 11/08/18 Acetaminophen W/ Codeine [Tylenol W/ CODEINE #3] 1 ea PO Q6H PRN 7 Days #10 07/05/19 Alendronate Sodium 70 mg PO WKLY 07/05/19 Azithromycin Tab [Zithromax Tab] 250 mg PO DAILY 4 Days #4 tab 07/05/19 Celecoxib 200 mg PO DAILY 07/05/19 Cyclobenzaprine HCl [Flexeril] 10 mg PO DAILY 07/05/19 Enalapril Maleate & Hydrochlor [Enalapril Maleate/Hydroch 10-25 mg] 1 tab PO DAILY 07/05/19 Gabapentin 100 mg PO TID 07/05/19 Insulin Glargine [Toujeo Max Solostar] 80 unit SC DAILY 07/05/19 Insulin Lispro [Insulin Lispro Kwikpen] 100 unit SC TID 07/05/19 Montelukast [Singulair] 10 mg PO DAILY 07/05/19 Potassium Chloride [Potassium Chloride ER] 10 meq PO DAILY 07/05/19 Additional Instructions: Remain well hydrated. Continue taking ibuprofen 600 mg every 6 hours and Tylenol 650 mg every 6 hours as needed for pain. You may take Tylenol #3 as directed for breakthrough pain but do not drive while taking. Return if symptoms change or worsen or other concerning symptoms develop such as worsening cough, shortness of breath, fever >100 F, etc...
[2019-07-05 09:44] VITALS: TEMP 98.2
[2019-07-05] MEDS ORDERED: KETOROLAC TROMETHAMINE INJ 30 MG/ML VIAL IV ONE (09:59)
[2019-07-05] MEDS ORDERED: POTASSIUM CHLORIDE 20 MEQ TAB PO ONE (09:59)
--- NOTE | 2019-07-05 10:18 | RAD ---
Study: Frontal and Lateral Radiographs of the Chest. Indication: Right-sided chest pain Comparison: November 11, 2018 Impression: Heart size upper limits of normal. Again noted are changes of suspected right lower rib resection and hyperaeration of the right lung base. Right basilar scarring again noted. Superimposed consolidation is difficult to exclude. Dedicated CT chest with IV contrast could better evaluate. No pleural effusion or pneumothorax. Electronically signed by: Vadim Krause MD 07/05/2019 10:16 AM CDT
[2019-07-05] MEDS ORDERED: HYDROcodone 10MG/APAP 325MG 1 EA TAB PO ONE (11:00)
[2019-07-05] MEDS ORDERED: AZITHROMYCIN 250 MG TAB PO ONE (11:41)
[2019-07-05 11:55] VITALS: BP 120/80; O2SAT 97
== END 2019-07-05 11:51 | disposition home or self-care (01) ==
LOC: ER 09:13
DX: R07.81 Pleurodynia (principal); R07.89 Other chest pain; J44.9 Chronic obstructive pulmonary disease, unspecified; E11.9 Type 2 diabetes mellitus without complications; I10 Essential (primary) hypertension
CPT/HCPCS: 36415; 71046; 80053; 83880; 84484; 85025; 93005; 94760; J1885; Q0144

== ENCOUNTER 2019-07-06 15:59 | Emergency (ER) | payer OTHER ==
--- NOTE | 2019-07-06 17:27 | CT ---
EXAM DESCRIPTION: Chest w/o Contrast CLINICAL HISTORY: 63 years Female rt ant lower chest pain, distant surgery COMPARISON: None TECHNIQUE: Images were obtained in axial, sagittal, and coronal planes. This exam was performed according to our departmental dose-optimization program which includes use of Automated Exposure Control, adjustment of the mA and/or kV according to patient size and/or use of iterative reconstruction technique. FINDINGS: Findings indicating prior surgery right lateral hemithorax at level of lateral right sixth and seventh rib interspace. Lateral herniation right lung in this region with associated airspace attenuation consistent with atelectatic change versus infiltrate or postsurgical change. Contusion not excluded. No acute osseous abnormality otherwise noted. Aortic root is dilated measuring 4.5 cm in anterior posterior dimension. No pericardial or pleural effusions bilaterally. No adenopathy. No pneumothorax. No lung parenchymal infiltrates or nodules on left. Prior cholecystectomy. No abnormality upper abdomen. IMPRESSION: Deformity right lateral hemithorax at level of sixth and seventh rib interspace. There is history of prior surgery. Lateral herniation lateral right lung with associated atelectatic change versus infiltrate or post instrumentation change. Dilated aortic root. Electronically signed by: Sammie Grace MD 07/06/2019 5:25 PM CDT
[2019-07-06 17:46] VITALS: O2SAT 96
--- NOTE | 2019-07-06 17:49 | ED.PDOC ---
History of Present Illness - General Chief Complaint: General Stated Complaint: R rib pain x 3 days Time Seen by Provider: 07/06/19 16:01 Source: patient Exam Limitations: no limitations - History of Present Illness Initial Comments: The patient is a 63-year-old female presented emergency room secondary to persistent right-sided chest pain. The patient was actually seen here yesterday and had a fairly significant work-up done including blood work and chest x-ray. She was given some pain medications. The pain is felt to be most likely pleural or musculoskeletal. She was however written for in case there was a mild underlying pneumonia spreading. No fevers. No productive cough. No known trauma. The patient has had 2 ribs resected and the pain is right at the tip of the anterior lower aspect of the resection site. It is worse when she twists and turns. It is worse when she takes a deep breath. It is worse when she coughs or sneezes. There is no crepitus or otherwise new deformity. No bruising. Mild tenderness to palpation of the area. Timing/Duration: other Severity: moderate - 3 days Improving Factors: immobilization Worsening Factors: movement Associated Symptoms: denies symptoms Allergies/Adverse Reactions: Allergies NO KNOWN ALLERGY Allergy (Verified 07/06/19 16:20) Home Medications: Ambulatory Orders Bupropion HCl [Bupropion Hydrochloride E] 150 mg PO BID 11/08/18 Esomeprazole Magnesium 40 mg PO DAILY 11/08/18 Fluticasone Furoate-Vilanterol [Breo Ellipta 100-25 Mcg/INH] 1 inh IN BID 11/08/18 Metformin HCl [Fortamet] 500 mg PO BID 11/08/18 Topiramate 25 mg PO BID 11/08/18 Acetaminophen W/ Codeine [Tylenol W/ CODEINE #3] 1 ea PO Q6H PRN 7 Days #10 07/05/19 Alendronate Sodium 70 mg PO WKLY 07/05/19 Azithromycin Tab [Zithromax Tab] 250 mg PO DAILY 4 Days #4 tab 07/05/19 Celecoxib 200 mg PO DAILY 07/05/19 Cyclobenzaprine HCl [Flexeril] 10 mg PO DAILY 07/05/19 Enalapril Maleate & Hydrochlor [Enalapril Maleate/Hydroch 10-25 mg] 1 tab PO DAILY 07/05/19 Gabapentin 100 mg PO TID 07/05/19 Insulin Glargine [Toujeo Max Solostar] 80 unit SC DAILY 07/05/19 Insulin Lispro [Insulin Lispro Kwikpen] 100 unit SC TID 07/05/19 Montelukast [Singulair] 10 mg PO DAILY 07/05/19 Potassium Chloride [Potassium Chloride ER] 10 meq PO DAILY 07/05/19 Cyclobenzaprine HCl [Flexeril] 10 mg PO TID PRN #20 tab 07/06/19 Review of Systems - Review of Systems Constitutional: States: no symptoms reported EENTM: States: no symptoms reported Respiratory: States: no symptoms reported Cardiology: States: chest pain Gastrointestinal/Abdominal: States: no symptoms reported Genitourinary: States: no symptoms reported Musculoskeletal: States: no symptoms reported Skin: States: no symptoms reported Neurological: States: see HPI - The patient has longstanding movement disorder Endocrine: States: no symptoms reported All other Systems: No Change from Baseline Past Medical History (General) - Patient Medical History Hx Seizures: No Hx Stroke: No Hx Asthma: Yes Hx of COPD: Yes Hx Cardiac Disorders: No Hx Congestive Heart Failure: No Hx Pacemaker: No Hx Hypertension: Yes Hx Diabetes: Yes Hx Cancer: Yes - skin Hx MRSA: No Surgical History: cancer surgery, cholecystectomy, other - Vaccination History Hx Tetanus, Diphtheria Vaccination: No Hx Influenza Vaccination: No Hx Pneumococcal Vaccination: No - Social History Hx Tobacco Use: Yes Hx Alcohol Use: No Hx Substance Use: No Hx Substance Use Treatment: No Hx Depression: No Hx Physical Abuse: No Hx Emotional Abuse: No - Female History Patient is a Female of Child Bearing Age (10 -59 yrs old): No Patient : No Family Medical History - Family History Mother Living Status: Hx Cardiac Disease: Yes Hx Family Diabetes: Yes Physical Exam - Physical Exam General Appearance: Alert, Other - Obviously uncomfortable Eye Exam: bilateral normal Ears, Nose, Throat: hearing grossly normal, normal pharynx - Chronic abnormal mouth movements Neck: full range of motion, supple Respiratory: lungs clear, normal breath sounds, no respiratory distress, no accessory muscle use Cardiovascular/Chest: normal peripheral pulses, regular rate, rhythm, no edema, other - See history of present illness for chest wall. Peripheral Pulses: radial,right: 2+, radial,left: 2+ Gastrointestinal/Abdominal: non tender - Absolutely no abdominal pain to the right upper quadrant or right right lateral abdomen, soft Rectal Exam: deferred Back Exam: no CVA tenderness, no vertebral tenderness Extremity: normal range of motion, non-tender, normal inspection, no pedal edema, normal capillary refill Neurologic: hot dip galvanizer II-XII nml as tested, alert, normal mood/affect, oriented x 3 Skin Exam: normal color Comments: Vital Signs - 24 hr 07/06/19 07/06/19 07/06/19 16:00 16:13 17:00 Temperature 98.4 F Pulse Rate [ 85 85 82 Pulse ox] Respiratory 22 22 16 Rate Blood Pressure 126/85 122/76 [L brachial] O2 Sat by Pulse 99 96 Oximetry Progress - Progress Progress: 07/06/19 17:53 The patient is a 63-year-old female presented emergency room secondary to right anterior inferior chest wall pain. This is likely musculoskeletal due to strain at the anterior inferior side of her previous rib resection. CT scan of the chest was reassuring. The patient can continue to take her oral antibiotic to make sure no infection develops. She already has Tylenol 3 and she will be written for some Flexeril to take as well as needed to help control muscle spasms. She can take Aleve twice a day as well. She does need to take big deep breaths, make herself cough and twist and turn in order to help prevent further muscle spasm and reduce pain. No overt evidence of infection at this time. No evidence of pneumothorax at this time. If the patient starts to develop a rash over the area then she needs to be reevaluated as that can indicate the development of shingles. If she starts to develop a fever then she needs to be reevaluated. CT scan of the chest also showed some dilation of aortic root at 4.5 cm. Want her to follow back up with her primary care doctor later this coming week for reevaluation of her chest pain and to plan out further evaluation for the aortic root in the future, such as with an echocardiogram. ER warnings are given. The patient is likely to have pain for the next 3 to 4 weeks, but slowly improving. elida davila [phone] - Results/Orders Results/Orders: CT scan of the chest without contrast shows where the patient has her pain is at the anterior inferior aspect of the rib resection site. At that area of the lung has herniated through the hole in the chest wall. There is either a small area of atelectasis or infiltrate present. No pneumothorax. No free air. No new fractures. Departure - Departure Clinical Impression: Acute chest wall pain Aortic aneurysm without rupture Qualifiers: Aortic location: thoracic aorta Qualified Code(s): I71.2 - Thoracic aortic aneurysm, without rupture Disposition: Discharge to Home or Self Care Condition: Fair Departure Forms: ED Discharge - Pt. Copy, Patient Portal Self Enrollment Instructions: Pleuritic Chest Pain (DC) Diet: regular diet Activity: increase activity as tolerated Referrals: Bjorn Gibbons MD [Primary Care Provider] - 1-2 Weeks Prescriptions: Cyclobenzaprine HCl [Flexeril] 10 mg PO TID PRN #20 tab PRN Reason: Muscle Spasms Home Medications: Ambulatory Orders Bupropion HCl [Bupropion Hydrochloride E] 150 mg PO BID 11/08/18 Esomeprazole Magnesium 40 mg PO DAILY 11/08/18 Fluticasone Furoate-Vilanterol [Breo Ellipta 100-25 Mcg/INH] 1 inh IN BID 11/08/18 Metformin HCl [Fortamet] 500 mg PO BID 11/08/18 Topiramate 25 mg PO BID 11/08/18 Acetaminophen W/ Codeine [Tylenol W/ CODEINE #3] 1 ea PO Q6H PRN 7 Days #10 07/05/19 Alendronate Sodium 70 mg PO WKLY 07/05/19 Azithromycin Tab [Zithromax Tab] 250 mg PO DAILY 4 Days #4 tab 07/05/19 Celecoxib 200 mg PO DAILY 07/05/19 Cyclobenzaprine HCl [Flexeril] 10 mg PO DAILY 07/05/19 Enalapril Maleate & Hydrochlor [Enalapril Maleate/Hydroch 10-25 mg] 1 tab PO DAILY 07/05/19 Gabapentin 100 mg PO TID 07/05/19 Insulin Glargine [Toujeo Max Solostar] 80 unit SC DAILY 07/05/19 Insulin Lispro [Insulin Lispro Kwikpen] 100 unit SC TID 07/05/19 Montelukast [Singulair] 10 mg PO DAILY 07/05/19 Potassium Chloride [Potassium Chloride ER] 10 meq PO DAILY 07/05/19 Cyclobenzaprine HCl [Flexeril] 10 mg PO TID PRN #20 tab 07/06/19 Additional Instructions: The patient is a 63-year-old female presented emergency room secondary to right anterior inferior chest wall pain. This is likely musculoskeletal due to strain at the anterior inferior side of her previous rib resection. CT scan of the chest was reassuring. The patient can continue to take her oral antibiotic to make sure no infection develops. She already has Tylenol 3 and she will be written for some Flexeril to take as well as needed to help control muscle spasms. She can take Aleve twice a day as well. She does need to take big deep breaths, make herself cough and twist and turn in order to help prevent further muscle spasm and reduce pain. No overt evidence of infection at this time. No evidence of pneumothorax at this time. If the patient starts to develop a rash over the area then she needs to be reevaluated as that can indicate the development of shingles. If she starts to develop a fever then she needs to be reevaluated. CT scan of the chest also showed some dilation of aortic root at 4.5 cm. Want her to follow back up with her primary care doctor later this coming week for reevaluation of her chest pain and to plan out further evaluation for the aortic root in the future, such as with an echocardiogram. ER warnings are given. The patient is likely to have pain for the next 3 to 4 weeks, but slowly improving.
[2019-07-06] MEDS ORDERED: CYCLOBENZAPRINE HCL 10 MG TAB PO ONE (17:51)
[2019-07-06] MEDS ORDERED: predniSONE 20 MG TAB PO ONE (17:51)
[2019-07-06 18:19] VITALS: BP 117/66; TEMP 97.9
== END 2019-07-06 17:48 | disposition home or self-care (01) ==
LOC: ER 15:59
DX: R07.89 Other chest pain (principal); I71.2 Thoracic aortic aneurysm, without rupture; I10 Essential (primary) hypertension; J44.9 Chronic obstructive pulmonary disease, unspecified; Z79.4 Long term (current) use of insulin; F17.200 Nicotine dependence, unspecified, uncomplicated
CPT/HCPCS: 71250; 93005; J7512

== ENCOUNTER → 2019-07-29 | Outpatient (CLI) | payer OTHER ==
--- NOTE | 2019-07-29 12:01 | MRI ---
EXAM DESCRIPTION: Lumbar Spine w/o Contrast CLINICAL HISTORY: LUMBAR SPONDYLOSIS, DEGENERATION OF LUMBAR INTERVERTEBRAL DISC COMPARISON: X-rays July 23, 2019 TECHNIQUE: Multiplanar, multisequence MRI of the lumbar spine was performed without contrast. FINDINGS: Lumbar vertebral body heights are maintained. Horizontal positioning of the upper sacrum. No spondylolysis or spondylolisthesis. No marrow replacing process. Moderate Modic type II endplate signal changes are seen at L5-S1. Conus medullaris terminates at L1 and is unremarkable. Visualized intra-abdominal retroperitoneal structures show no acute findings. L1-2 No significant findings. L2-3 Desiccation of the disc space with mild disc space narrowing. Minimal broad-based disc bulging is seen. Mild facet hypertrophy and ligamentum flavum thickening. No spinal canal stenosis or significant foraminal encroachment. L3-4 No significant findings. L4-5 Mild desiccation of the disc space without disc space narrowing. Mild bilateral facet hypertrophic and degenerative changes. Minimal spinal canal stenosis is seen with mild right greater than left foraminal encroachment. L5-S1 Disc desiccation and moderate disc space narrowing. Mild right greater than left facet hypertrophic and degenerative changes. No spinal canal stenosis. Mild right lateral recess encroachment. Disc osteophytic ridging in the inferior aspect of the neural foramen is seen bilaterally with at least moderate right greater than left foraminal encroachment. The exiting right L5 nerve root contacts the disc osteophytic ridging within and lateral to the neural foramen. IMPRESSION: Horizontal positioning of the upper sacrum is seen without spondylolysis or spondylolisthesis. Moderate to severe disc disease asymmetric towards the right with mild right greater than left facet arthropathy at L5-S1 results in at least moderate right and mild left foraminal encroachment. Mild disc disease and facet arthropathy above the L5 level. Electronically signed by: Yunior Nur MD 07/29/2019 12:00 PM CDT
== END ==
LOC: MRI 10:00
PROVIDERS: ATTEND General Practice
DX: M51.36 Other intervertebral disc degeneration, lumbar region (principal); M12.9 Arthropathy, unspecified

== ENCOUNTER → 2019-11-20 | Outpatient (CLI) | payer MEDICARE, OTHER ==
--- NOTE | 2019-11-25 09:46 | MAM ---
EXAM DESCRIPTION: 3D Screening BILATERAL : Digital Mammography. CLINICAL HISTORY: 64 years Female ANNUAL SCREENING . No complaints. Mother with breast cancer unknown age. Menarche age 11. Childbirth age 14. Menopause age 46. No HRT. Prior benign right breast biopsy. Lifetime risk of developing breast cancer (Tyrer-Cuzick model)(%): 11.0. COMPARISON: 2-D bilateral digital diagnostic examination December 2008 and 2-D bilateral digital screening mammography October 2007. No prior reports available. TECHNIQUE: Bilateral CC and MLO projection full-field images, digital tomosynthesis mammographic technique. Bilateral digital 2-D full-field MLO images. CAD available for 2-D images. FINDINGS: The breast parenchymal density pattern is: Heterogeneously dense breast tissue, which may obscure small masses. No skin thickening or nipple retraction. Biopsy site marker anterior right breast. Bilateral solitary microcalcifications. Vascular calcifications. Intramammary lymph nodes. Group of benign type calcifications anterior right breast. Bilateral increase in fatty replacement since the prior study. No new focal, stellate mass or density, focal asymmetry , and no suspicious microcalcifications bilaterally. IMPRESSION: Benign exam. BIRAD CATEGORY: 2 BENIGN FINDINGS. RECOMMENDATIONS: FOLLOW UP: Routine digital bilateral mammographic screening, one year interval from October 2019. Written communication explaining the IMPRESSION and follow-up, will be mailed to the patient and referring health care provider. According to the [employer], yearly mammograms are recommended starting at age 40 and continuing as long as a woman is in good health. Any breast change noted on a breast self-exam should be reported promptly to the patient's healthcare provider. Breast MRI is recommended for women with an approximately 20-25% or greater lifetime risk of breast cancer, including women with a strong family history of breast or ovarian cancer and women who have been treated for Hodgkin's disease. A negative mammographic report should not delay tissue diagnosis in patients with significant clinical history or physical findings. Extremely dense breast tissue limits the sensitivity of digital mammography. Electronically signed by: Anish Go MD 11/25/2019 9:44 AM CDT
== END ==
LOC: MAMMO 08:20
PROVIDERS: ATTEND General Practice
DX: Z12.31 Encounter for screening mammogram for malignant neoplasm of breast (principal)

== ENCOUNTER 2019-12-01 08:22 | Emergency (ER) | payer MEDICARE, OTHER ==
[2019-12-01] MEDS ORDERED: SODIUM CHLORIDE 0.9% (FLUSH) 10 ML SYG IV PRN (08:26)
[2019-12-01] MEDS ORDERED: NALOXONE HCL INJ 1 MG/ML SYG IV ONE (08:26)
[2019-12-01] MEDS ORDERED: SODIUM CHLORIDE 0.9% 1000ML 1,000 ML IVS ONE ×3 (08:26→16:32)
--- NOTE | 2019-12-01 08:32 | ED.PDOC ---
History of Present Illness - General Source: patient, family, EMS - History of Present Illness Initial Comments: 64 yo female with PMH of HTN, DM2, GERD, anxiety, depression who is brought in by EMS from home for chief complaint of unresponsiveness and suicide attempt by drug overdose. History is limited for now as patient is beginning to wake up. She does admit to taking "a lot of pills this morning." When asked further she states that she took her gabapentin and Seroquel but is unable to say the quantity. On arrival EMS has her purse with empty pill bottles of Seroquel 100 mg #30 and gabapentin 300 mg #90. Family called 911 approximately 20 minutes prior to patient arrival for complaint of poor breathing and unresponsiveness. Firefighters initially on scene reported very poor pulses and poor breathing so CPR was briefly initiated. After a few chest compressions patient apparently woke up and had improved breathing and pulses. EMS on scene reported initial respiratory rate of 6 and SPO2 of 83%. D stick was 115 and blood pressure 130s/80s in route. Here patient admitted that she was trying to kill herself by taking an overdose of her pills. She reports that she "is just tired and wanted to end it." Denies taking any other medications, drugs, alcohol, etc. this morning. She also admits to being some of her gabapentin and Seroquel last night before going to bed. Patient denies any complaints or acute symptoms at this time. Denies chest pain, dyspnea, fevers, chills, abdominal pain, nausea/vomiting, urinary symptoms. She is awake and alert but drowsy. She does arouse easily to verbal stimulation and answers most questions appropriately with some slowed mentation. <Prasanth Evans - Last Filed: 12/02/19 06:57> <Luis Alberto Kaba - Last Filed: 12/02/19 07:55> - General Chief Complaint: Drug or Alcohol Abuse Stated Complaint: overdose/suicide attempt Time Seen by Provider: 12/01/19 08:25 - History of Present Illness Allergies/Adverse Reactions: Allergies NO KNOWN ALLERGY Allergy (Verified 07/06/19 16:20) Home Medications: Ambulatory Orders Bupropion HCl [Bupropion Hydrochloride E] 150 mg PO BID 11/08/18 Esomeprazole Magnesium 40 mg PO DAILY 11/08/18 Fluticasone Furoate-Vilanterol [Breo Ellipta 100-25 Mcg/INH] 1 inh IN DAILY 11/08/18 Topiramate 25 mg PO BID 11/08/18 Alendronate Sodium 70 mg PO WKLY 07/05/19 Celecoxib 200 mg PO DAILY 07/05/19 Cyclobenzaprine HCl [Flexeril] 10 mg PO BEDTIME PRN 07/05/19 Enalapril Maleate & Hydrochlor [Enalapril Maleate/Hydroch 10-25 mg] 1 tab PO DAILY 07/05/19 Gabapentin 100 mg PO TID 07/05/19 Insulin Glargine [Toujeo Max Solostar] 80 unit SC DAILY 07/05/19 Insulin Lispro [Insulin Lispro Kwikpen] 100 unit SC TID 07/05/19 Montelukast [Singulair] 10 mg PO DAILY 07/05/19 Potassium Chloride [Potassium Chloride ER] 10 meq PO DAILY 07/05/19 Insulin Glargine [Toujeo Max Solostar] 50 units SC DAILY 08/22/19 metFORMIN XR [Glucophage Xr] 500 mg PO BID 08/22/19 Albuterol Inhaler [Ventolin Hfa Inhaler] 1 - 2 puff INH Q4HR #1 inh 08/29/19 Albuterol Sulfate Nebs [Proventil Nebs] 2.5 mg INH Q4HR #50 vial 08/29/19 Apixaban [Eliquis] 2.5 mg PO BID 30 Days #60 tab 08/29/19 Budes/Formoterol INH 160/4.5 [Symbicort Inhaler 160/4.5] 2 puff INH RTBID #1 inh 08/29/19 Cefdinir [Omnicef] 300 mg PO BID #12 cap 08/29/19 Review of Systems - Review of Systems Review of Systems: 12/01/19 08:41 as per HPI All other Systems: Reviewed and Negative <Prasanth Evans - Last Filed: 12/02/19 06:57> Past Medical History (General) - Patient Medical History Hx Seizures: No Hx Stroke: No Hx Asthma: No Hx of COPD: Yes Hx Cardiac Disorders: No Hx Congestive Heart Failure: No Hx Pacemaker: No Hx Hypertension: Yes Hx Diabetes: Yes Hx Cancer: Yes - skin Hx MRSA: No - Vaccination History Hx Tetanus, Diphtheria Vaccination: No Hx Influenza Vaccination: No Hx Pneumococcal Vaccination: No - Social History Hx Tobacco Use: Yes Hx Alcohol Use: No Hx Substance Use: No Hx Substance Use Treatment: No Hx Depression: No Hx Physical Abuse: No Hx Emotional Abuse: No - Female History Patient : No <Prasanth Evans - Last Filed: 12/02/19 06:57> Family Medical History - Family History Mother Living Status: Hx Cardiac Disease: Yes Hx Family Diabetes: Yes <Prasanth Evans - Last Filed: 12/02/19 06:57> Physical Exam - Physical Exam General Appearance: No apparent distress, Lethargic, Unkempt Eye Exam: bilateral normal Ears, Nose, Throat: hearing grossly normal, normal ENT inspection, normal pharynx Neck: full range of motion, supple, normal inspection Respiratory: chest non-tender, lungs clear, normal breath sounds, no respiratory distress, no accessory muscle use Cardiovascular/Chest: normal peripheral pulses, regular rate, rhythm, no edema, no gallop, no JVD, no murmur Peripheral Pulses: radial,right: 2+, radial,left: 2+ Gastrointestinal/Abdominal: non tender, soft, no organomegaly Back Exam: normal inspection, no CVA tenderness, no vertebral tenderness Extremity: normal range of motion, non-tender, normal inspection, no pedal edema, no calf tenderness, normal capillary refill Neurologic: no motor/sensory deficits, depressed affect, other - Appears drowsy and somnolent but arouses easily to verbal stimuli and answers most questions appropriately. States the year is 2024 but is correct with a month of November, not oriented to the date. Oriented to location Skin Exam: normal color, warm/dry <Prasanth Evans - Last Filed: 12/02/19 06:57> Progress - Progress Progress: 12/01/19 08:42 Suicide attempt by drug overdose -Suspected medications are Seroquel and gabapentin, quantity uncertain. Consider other medications, narcotics, benzodiazepines, although these are not on her person -Consider [employer] depression, arrhythmias, ACS, cardiorespiratory depression, impending respiratory failure, sudden cardiac arrest, other -Obtain stat toxic, metabolic, cardiac work-up -1 L normal saline bolus, trial of Narcan to see if patient responds -I immediately discussed the case with poison control who agrees with the work- up. Advises 6 hours of observation minimum. 12/01/19 09:26 -Pt remains stable. Minimal/no response to Narcan so no further doses given. Remains somnolent but easily arousable, vitals stable. Blood gas drawn but is venous, pH 7.38, PCO2 50. 12/01/19 10:31 -Patient remained stable, much more awake and alert now. Able to obtain more history. Patient states recently she lacks money to a male friend of hers and he took the money and left town which caused her to be more depressed. She states "I was just tired of it and wanted to end it." Reports this is her first suicide attempt. -All labs back and pertinent for CPK slightly elevated to 527, serum potassium 2.8. Urine drug screen is positive for methamphetamines/amphetamines. Otherwise her tox screen is pretty unremarkable. Serum troponin is normal. Serum bicarb and anion gap are within normal limits. Serum WBC normal, lactic acid 1.5. -Chest x-ray reveals improved bilateral infiltrates compared to last study. There is slight faint hazy opacification of the right lower lobe concerning for atelectasis versus infiltrate. As patient is without symptoms of respiratory infection and is afebrile, doubtful of pneumonia. -Plan to discuss further with the hospitalist for admission for rhabdomyolysis and hypokalemia in the setting of drug overdose in need for further observation for medical clearance in order to obtain MR evaluation for ultimate dispo. 12/01/19 11:06 -I discussed the patient with Filomena Everett who states that we are unable to admit suicidal patients to this hospital as we do not have the personnel for one-on-one monitoring. Thus the plan will be to continue to observe the patient in the ED and repeat labs in the next 4 to 5 hours. If the CPK level is improving and patient remained stable, will attempt [facility] consultation at that time. 12/02/19 02:17 -Repeat trending of the CPK has revealed 527 -> 584 -> 584. Serum K+ improved to 3.2. Pt has remained stable, NAD in ED. Will plan to continue IVF's in the ED and repeat labs at 0600. If CPK trending down/stable, will consult [facility] for psychiatric eval. 12/02/19 06:57 -The patient has remained stable throughout her ED observation. Plan is to repeat her CPK and BMP this morning. If her electrolytes are stable and her CPK is stable or downtrending, then she can be cleared medically for psychiatric evaluation for suicide attempt by drug overdose. -Hand off given to Dr. Kaba at shift change who will f/u the lab results. Prasanth Evans MD Billing #[id number] 12/01/19 08:26 IV Care:Saline Lock per Protoc QSHIFT Sodium Chloride 0.9% (Flush) [Saline Flush Syringe] 10 ml IV PRN PRN 12/01/19 08:30 EKG STAT 12/01/19 14:00 EKG STAT 12/01/19 14:28 KCl 20 Meq/Ns [NS W/ KCL 20 meq/Liter] 1,000 ml IVS .QD 12/01/19 Dinner 1800 Calorie ADA Diet 12/02/19 01:06 KCl 20 Meq/Ns [NS W/ KCL 20 meq/Liter] 1,000 ml IVS .QD Laboratory Results - last 24 hr 12/01/19 12/01/19 12/01/19 08:27 08:30 08:30 WBC 6.1 RBC 4.59 Hgb 12.0 Hct 36.3 MCV 79.2 L MCH 26.1 L MCHC 32.9 L RDW 16.1 H Plt Count 197 MPV 8.4 Absolute Neuts (auto) 3.90 Absolute Lymphs (auto) 1.70 Absolute Monos (auto) 0.40 Absolute Eos (auto) 0.10 Absolute Basos (auto) 0.00 Neutrophils % 63.0 Lymphocytes % 27.7 Monocytes % 7.2 Eosinophils % 1.4 Basophils % 0.7 PT 10.3 INR 1.03 PTT (SP) 23.9 pCO2 50 H pO2 23 L* HCO3 29.9 ABG pH 7.384 ABG O2 Saturation 34.2 L* ABG Base Excess 4.0 ABG Deoxyhemoglobin 64.4 H Oxyhemoglobin % 33.4 L Carboxyhemoglobin % 1.2 Methemoglobin % Sat 1.0 Calc Total Hemoglobin 11.7 L Sodium Potassium Chloride Carbon Dioxide Anion Gap BUN Creatinine BUN/Creatinine Ratio Random Glucose Serum Osmolality Lactic Acid Calcium Magnesium Total Bilirubin AST ALT Alkaline Phosphatase Creatine Kinase Troponin I Serum Total Protein Albumin Globulin Albumin/Globulin Ratio Urine Color Urine Appearance Urine pH Ur Specific Cameron Urine Protein Urine Glucose (UA) Urine Ketones Urine Blood Urine Nitrite Urine Bilirubin Urine Urobilinogen Ur Leukocyte Esterase Urine RBC Urine WBC Ur Epithelial Cells Urine Bacteria Urine Mucus Salicylates Urine Opiates Screen Acetaminophen Urine Barbiturates Ur Phencyclidine Scrn U Amphetamin/Meth Scrn U Benzodiazepines Scrn U Cocaine Metab Screen U Cannabinoids Screen Ethyl Alcohol 12/01/19 12/01/19 12/01/19 08:30 08:30 08:30 WBC RBC Hgb Hct MCV MCH MCHC RDW Plt Count MPV Absolute Neuts (auto) Absolute Lymphs (auto) Absolute Monos (auto) Absolute Eos (auto) Absolute Basos (auto) Neutrophils % Lymphocytes % Monocytes % Eosinophils % Basophils % PT INR PTT (SP) pCO2 pO2 HCO3 ABG pH ABG O2 Saturation ABG Base Excess ABG Deoxyhemoglobin Oxyhemoglobin % Carboxyhemoglobin % Methemoglobin % Sat Calc Total Hemoglobin Sodium 140 Potassium 2.8 L Chloride 100 L Carbon Dioxide 29 Anion Gap 13.8 BUN 22 H Creatinine 0.63 BUN/Creatinine Ratio 34.9 H Random Glucose 151 H Serum Osmolality 285.6 Lactic Acid Calcium 8.8 Magnesium Total Bilirubin 0.6 AST 20 ALT 17 Alkaline Phosphatase 110 Creatine Kinase 527 H* Troponin I 0.02 Serum Total Protein 7.4 Albumin 3.5 Globulin 3.9 H Albumin/Globulin Ratio 0.9 L Urine Color Urine Appearance Urine pH Ur Specific Cameron Urine Protein Urine Glucose (UA) Urine Ketones Urine Blood Urine Nitrite Urine Bilirubin Urine Urobilinogen Ur Leukocyte Esterase Urine RBC Urine WBC Ur Epithelial Cells Urine Bacteria Urine Mucus Salicylates < 4.0 Urine Opiates Screen Acetaminophen < 10.0 L Urine Barbiturates Ur Phencyclidine Scrn U Amphetamin/Meth Scrn U Benzodiazepines Scrn U Cocaine Metab Screen U Cannabinoids Screen Ethyl Alcohol < 5.40 12/01/19 12/01/19 12/01/19 08:30 08:30 09:30 WBC RBC Hgb Hct MCV MCH MCHC RDW Plt Count MPV Absolute Neuts (auto) Absolute Lymphs (auto) Absolute Monos (auto) Absolute Eos (auto) Absolute Basos (auto) Neutrophils % Lymphocytes % Monocytes % Eosinophils % Basophils % PT INR PTT (SP) pCO2 pO2 HCO3 ABG pH ABG O2 Saturation ABG Base Excess ABG Deoxyhemoglobin Oxyhemoglobin % Carboxyhemoglobin % Methemoglobin % Sat Calc Total Hemoglobin Sodium Potassium Chloride Carbon Dioxide Anion Gap BUN Creatinine BUN/Creatinine Ratio Random Glucose Serum Osmolality Lactic Acid 1.5 Calcium Magnesium 2.1 Total Bilirubin AST ALT Alkaline Phosphatase Creatine Kinase Troponin I Serum Total Protein Albumin Globulin Albumin/Globulin Ratio Urine Color Urine Appearance Urine pH Ur Specific Cameron Urine Protein Urine Glucose (UA) Urine Ketones Urine Blood Urine Nitrite Urine Bilirubin Urine Urobilinogen Ur Leukocyte Esterase Urine RBC Urine WBC Ur Epithelial Cells Urine Bacteria Urine Mucus Salicylates Urine Opiates Screen Negative Acetaminophen Urine Barbiturates Negative Ur Phencyclidine Scrn Negative U Amphetamin/Meth Scrn Positive H U Benzodiazepines Scrn Negative U Cocaine Metab Screen Negative U Cannabinoids Screen Negative Ethyl Alcohol 12/01/19 12/01/19 12/01/19 09:30 13:10 19:55 WBC RBC Hgb Hct MCV MCH MCHC RDW Plt Count MPV Absolute Neuts (auto) Absolute Lymphs (auto) Absolute Monos (auto) Absolute Eos (auto) Absolute Basos (auto) Neutrophils % Lymphocytes % Monocytes % Eosinophils % Basophils % PT INR PTT (SP) pCO2 pO2 HCO3 ABG pH ABG O2 Saturation ABG Base Excess ABG Deoxyhemoglobin Oxyhemoglobin % Carboxyhemoglobin % Methemoglobin % Sat Calc Total Hemoglobin Sodium 140 140 Potassium 3.0 L 3.2 L Chloride 104 106 Carbon Dioxide 27 25 Anion Gap 12.0 12.2 BUN 18 14 Creatinine 0.52 L 0.61 BUN/Creatinine Ratio 34.6 H 23.0 H Random Glucose 151 H 160 H Serum Osmolality 284.2 283.3 Lactic Acid Calcium 8.2 L 8.0 L Magnesium Total Bilirubin AST ALT Alkaline Phosphatase Creatine Kinase 584 H* 584 H* Troponin I Serum Total Protein Albumin Globulin Albumin/Globulin Ratio Urine Color Yellow Urine Appearance Clear Urine pH 6.5 Ur Specific Cameron >= 1.030 Urine Protein Negative Urine Glucose (UA) Negative Urine Ketones Trace Urine Blood Negative Urine Nitrite Negative Urine Bilirubin Negative Urine Urobilinogen 1.0 Ur Leukocyte Esterase Negative Urine RBC 0 Urine WBC 1-3 Ur Epithelial Cells 0 Urine Bacteria Rare Urine Mucus Trace Salicylates Urine Opiates Screen Acetaminophen Urine Barbiturates Ur Phencyclidine Scrn U Amphetamin/Meth Scrn U Benzodiazepines Scrn U Cocaine Metab Screen U Cannabinoids Screen Ethyl Alcohol - EKG/XRAY/CT EKG: Sinus - Normal sinus rhythm, heart rate 70, no ST elevations, Q waves in lead III indicative of likely prior NC, axis normal, QTC slightly prolonged 508 ms, intervals otherwise normal, compared to 08/22/2019 EKG QTC prolongation appears new <Prasanth Evans - Last Filed: 12/02/19 06:57> - Progress Progress: Dr. Kaba assumed care at 0700. Pt still stable. IVF currently running. She is resting comfortably. RRR, CTAB. We are awaiting morning lab results. If CK trending down and potassium remaining the same or increasing, then she will be medically cleared for [facility], at which time we will transfer care to [facility] for psychiatric care for suicide attempt. 12/02/19 07:42 CK improving as expected, trending downward in a reassuring fashion from 584 to 431. Potassium improved from 3.2 to 3.4. She is alert and states she is feeling better. Making clear sentences (NL speech, mentation, affect). She expresses she is hungry and would like breakfast, which we will order. She inquires as to when she will be transferred to [facility]. Pt is pleasant and cooperative. The patient is now medically cleared and is safe for transfer to [facility] for psychiatric care. Once [facility] opens at 8 am, we will call and arrange for transfer. <Luis Alberto Kaba - Last Filed: 12/02/19 07:55> Departure <Prasanth Evans - Last Filed: 12/02/19 06:57> - Departure Diet: resume usual diet Activity: increase activity as tolerated <Luis Alberto Kaba - Last Filed: 12/02/19 07:55> - Departure Clinical Impression: Suicide attempt by drug overdose, Respiratory distress, Hypokalemia Rhabdomyolysis Qualifiers: Rhabdomyolysis type: non-traumatic Qualified Code(s): M62.82 - Rhabdomyolysis Disposition: Transfer to [facility] Hospital Condition: Good Departure Forms: ED Discharge - Pt. Copy, Patient Portal Self Enrollment Instructions: DI for Drug Overdose in Adults, Depression, Adult (DC) Referrals: Bjorn Gibbons MD [Primary Care Provider] - 1-2 Weeks Home Medications: Ambulatory Orders Bupropion HCl [Bupropion Hydrochloride E] 150 mg PO BID 11/08/18 Esomeprazole Magnesium 40 mg PO DAILY 11/08/18 Fluticasone Furoate-Vilanterol [Breo Ellipta 100-25 Mcg/INH] 1 inh IN DAILY 11/08/18 Topiramate 25 mg PO BID 11/08/18 Alendronate Sodium 70 mg PO WKLY 07/05/19 Celecoxib 200 mg PO DAILY 07/05/19 Cyclobenzaprine HCl [Flexeril] 10 mg PO BEDTIME PRN 07/05/19 Enalapril Maleate & Hydrochlor [Enalapril Maleate/Hydroch 10-25 mg] 1 tab PO DAILY 07/05/19 Gabapentin 100 mg PO TID 07/05/19 Insulin Glargine [Toujeo Max Solostar] 80 unit SC DAILY 07/05/19 Insulin Lispro [Insulin Lispro Kwikpen] 100 unit SC TID 07/05/19 Montelukast [Singulair] 10 mg PO DAILY 07/05/19 Potassium Chloride [Potassium Chloride ER] 10 meq PO DAILY 07/05/19 Insulin Glargine [Toujeo Max Solostar] 50 units SC DAILY 08/22/19 metFORMIN XR [Glucophage Xr] 500 mg PO BID 08/22/19 Albuterol Inhaler [Ventolin Hfa Inhaler] 1 - 2 puff INH Q4HR #1 inh 08/29/19 Albuterol Sulfate Nebs [Proventil Nebs] 2.5 mg INH Q4HR #50 vial 08/29/19 Apixaban [Eliquis] 2.5 mg PO BID 30 Days #60 tab 08/29/19 Budes/Formoterol INH 160/4.5 [Symbicort Inhaler 160/4.5] 2 puff INH RTBID #1 inh 08/29/19 Cefdinir [Omnicef] 300 mg PO BID #12 cap 08/29/19
[2019-12-01] MEDS ORDERED: NALOXONE HCL INJ 0.4 MG/ML VIAL IV ONE (08:40)
--- NOTE | 2019-12-01 09:00 | RAD ---
EXAM DESCRIPTION: Chest,1 View CLINICAL HISTORY: drug overdose COMPARISON: Chest radiograph dated August 29, 2019 FINDINGS: One view radiograph of the chest. Patient is rotated to right. Cardiac silhouette again shows cardiomegaly. Pulmonary vascularity upper limits of normal. Interval improvement of previously demonstrated heterogeneous opacities throughout both lungs. Subtle opacity in the right lower lung zone may represent atelectasis versus infiltrate. Costophrenic angles are sharp. No pneumothorax. Subtle curvature deformity noted of the lateral right seventh rib may be due to positioning versus a nondisplaced fracture. IMPRESSION: 1. Cardiomegaly without overt congestive heart failure. 2. Interval improvement of previously demonstrated heterogeneous opacities throughout both lungs on comparison chest radiograph of August 29, 2019. Subtle opacity in the right lower lung zone may represent atelectasis versus infiltrate. 3. Subtle curvature deformity of the lateral right seventh rib may be due to positioning versus a nondisplaced fracture. Please correlate clinically for focal point tenderness.. If clinically concern for rib fracture, dedicated rib series with BB marker over the area of concern may be helpful for further evaluation. Electronically signed by: Josemanuel Jeter MD 12/01/2019 8:58 AM CDT
[2019-12-01] MEDS ORDERED: POTASSIUM CHLORIDE 20 MEQ TAB PO ONE (09:29)
[2019-12-01] MEDS ORDERED: POTASSIUM CHLORIDE IVPB ONE (09:29)
[2019-12-01] MEDS ORDERED: KCL 20 MEQ/NS 1,000 ML IVS ONE ×2 (12:08→20:41)
[2019-12-01] MEDS ORDERED: KCL 20 MEQ/NS 1,000 ML IVS PRN (14:28)
[2019-12-01] MEDS ORDERED: SODIUM CHLORIDE 0.9% 1000ML 1,000 ML ONE (16:28)
[2019-12-02] MEDS: KCL 20 MEQ/NS 1,000 ML IVS PRN ×2 (01:27→05:33)
[2019-12-02 05:40] VITALS: TEMP 97.9
[2019-12-02 12:26] VITALS: O2SAT 97
[2019-12-02 15:00] VITALS: BP 112/68
== END 2019-12-02 14:50 ==
LOC: ER 08:22
DX: T43.592A Poisoning by other antipsychotics and neuroleptics, intentional self-harm, initial encounter (principal); T42.6X2A Poisoning by other antiepileptic and sedative-hypnotic drugs, intentional self-harm, initial encounter; R06.03 Acute respiratory distress; E87.6 Hypokalemia; M62.82 Rhabdomyolysis; F19.10 Other psychoactive substance abuse, uncomplicated; F32.9 Major depressive disorder, single episode, unspecified; F41.9 Anxiety disorder, unspecified; J44.9 Chronic obstructive pulmonary disease, unspecified; I10 Essential (primary) hypertension; E11.9 Type 2 diabetes mellitus without complications; K21.9 Gastro-esophageal reflux disease without esophagitis; Z85.828 Personal history of other malignant neoplasm of skin; Z20.828 Contact with and (suspected) exposure to other viral communicable diseases; Z87.891 Personal history of nicotine dependence; Z79.899 Other long term (current) drug therapy; Z79.4 Long term (current) use of insulin; Z79.01 Long term (current) use of anticoagulants
CPT/HCPCS: 36415; 36600; 71045; 80048; 80053; 80307; 80320; 80329; 81001; 82550; 82803; 82805; 83605; 83735; 84484; 85025; 85610; 85730; 87486; 87581; 87633; 87635; 93005; A4216; J2310; J3480; J7030